=== PATIENT | female | born 1955 | race Caucasian/White ===

== ENCOUNTER 2017-02-16 07:07 | Emergency (ER) | payer OTHER ==
[~2017-02-16] VITALS: Ht 160 cm; Wt 58.1 kg
[2017-02-16 10:21] VITALS: BP 110/50
[2017-02-16] MEDS ORDERED: DILAUDID 2 MG TA2 MG PO (10:30)
== END 2017-02-16 10:31 | disposition home or self-care (01) ==
LOC: ER 07:07
DX: I89.0 Lymphedema, not elsewhere classified (principal); C85.95 Non-Hodgkin lymphoma, unspecified, lymph nodes of inguinal region and lower limb; Z77.22 Contact with and (suspected) exposure to environmental tobacco smoke (acute) (chronic)